=== PATIENT | male | born 1945 | race Caucasian/White ===

== ENCOUNTER 2022-06-17 13:11 | Outpatient (CLI) | payer MEDICARE, OTHER, SELFPAY | END 2022-06-17 13:12 | disposition home or self-care (01) | DX: E83.119 Hemochromatosis, unspecified (principal) | CPT/HCPCS: 36415 ==

== ENCOUNTER 2023-08-10 10:36 | Emergency (ER) | payer MEDICARE, OTHER, SELFPAY ==
[2023-08-10 10:46] VITALS: BP 147/77; PULSE 59; RESP 18; TEMP 36.7; O2SAT 93; BMI 36.5
--- NOTE | 2023-08-10 11:13 | ED_ITS ---
HPI - General Adult General Chief complaint: Chest Pain Stated complaint: Upper L side chest/shoulder pain Time Seen by Provider: 08/10/23 10:50 History of Present Illness HPI narrative: This 78-year-old male comes in reporting some left-sided neck, left shoulder, and left upper anterior chest discomfort over the past 10 days. He states that this pain is reproducible with certain movements. 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 Last week he had an echocardiogram and stress test which showed reassuring findings. There was the small progression of his coronary artery disease but the patient does not report any exercise intolerance. He does not have any nausea, vomiting, lightheadedness, shortness of breath, or diaphoresis. Related Data Home Medications Medication Instructions Recorded Confirmed aspirin 81 mg tablet,delayed 81 mg PO DAILY 08/10/23 08/10/23 release (Adult Low Dose Aspirin) carvedilol 25 mg tablet 25 mg PO BID 08/10/23 08/10/23 fluoxetine 20 mg capsule 20 mg PO BID 08/10/23 08/10/23 levothyroxine 50 mcg tablet 50 mcg PO DAILY 08/10/23 08/10/23 losartan 50 mg tablet 75 mg PO DAILY 08/10/23 08/10/23 metformin 1,000 mg tablet 1,000 mg PO BID 08/10/23 08/10/23 rosuvastatin 20 mg tablet 20 mg PO DAILY 08/10/23 08/10/23 Previous Rx's Medication Instructions Recorded cyclobenzaprine 10 mg tablet 10 mg PO TID #15 tabs 08/10/23 ketorolac 10 mg tablet 10 mg PO Q8H 5 days #15 tabs 08/10/23 Allergies Allergy/AdvReac Type Severity Reaction Status Date / Time corticotropin Allergy Unknown Verified 08/10/23 10:54 Review of Systems Status of ROS: Reports: 10 or more systems reviewed and unremarkable except as noted in History and below Narrative: Constitutional: No fevers, no weight gain or loss. Eyes: No discharge. No vision changes. HENT: No congestion, no sore throat, no ear pain. Cardiovascular: No palpitations. Respiratory: No shortness of breath, no wheezes, no cough. Gastrointestinal: No abdominal pain, no vomiting, no diarrhea. Genitourinary: No dysuria, no hematuria. Musculoskeletal: Normal range of motion. Skin: No rashes, no pruritis. Neurological: No dizziness, weakness, sensory change, speech change. Endo/Heme/Allergies: No bruising or bleeding. No polydipsia. Pysch: no suicidality, no anxiety, no insomnia. All other systems reviewed and are negative. Exam Narrative: Exam Narrative: Constitutional: Well-developed, well-nourished, no acute distress. HEENT: Normocephalic, atraumatic. Neck: Normal range of motion. Nontender. Supple. Heart: Regular. No murmurs. Normal rate. Intact distal pulses. Lungs: Clear to auscultation. No wheezes, rhonchi, or rales. Abdomen: Normal bowel sounds. Nontender. No rebound tenderness. Genitalia: Deferred. Back: No midline tenderness. Normal range of motion. Extremities: Normal range of motion. No injury. He reports pain in the left side of his neck radiating into his left shoulder and upper chest. This pain is reproducible with certain movements and relieved with rest. Skin: Intact. No rash. Warm. No erythema or pallor. Neurologic: No altered sensation. No weakness. Alert and oriented. Psychiatric: No suicidality. No anxiety or depression. No insomnia. Nursing notes and vitals signs are reviewed. Const: Vital Signs, click to edit/add: Vital Signs - 24 hr 08/10/23 10:46 Temperature 98.1 F Pulse Rate [Pulse Oximeter] 59 L Respiratory Rate 18 Blood Pressure [Le ft Upper Arm] 147/77 H Pulse Oximetry 93 Oxygen Delivery Me thod Room Air Course Vital Signs Vital signs: Initial Vital Signs Temperature 98.1 F 08/10/23 10:46 Temperature Source Temporal Artery Scan 08/10/23 10:46 Pulse Rate 59 L 08/10/23 10:46 Respiratory Rate 18 08/10/23 10:46 Blood Pressure 147/77 H 08/10/23 10:46 Blood Pressure Mean 100 08/10/23 10:46 Blood Pressure Position Supine 08/10/23 10:46 Pulse Oximetry 93 08/10/23 10:46 Oxygen Delivery Method Room Air 08/10/23 10:46 Vital Signs Temperature 98.1 F 08/10/23 10:46 Pulse Rate 59 L 08/10/23 10:46 Respiratory Rate 18 08/10/23 10:46 Blood Pressure 147/77 H 08/10/23 10:46 Pulse Oximetry 93 08/10/23 10:46 Oxygen Delivery Method Room Air 08/10/23 10:46 Temperature 98.1 F 08/10/23 10:46 Pulse Rate 59 L 08/10/23 10:46 Respiratory Rate 18 08/10/23 10:46 Blood Pressure 147/77 H 08/10/23 10:46 Pulse Oximetry 93 08/10/23 10:46 Oxygen Delivery Method Room Air 08/10/23 10:46 Medical Decision Making MDM Narrative Medical decision making narrative: This patient comes in with reproducible discomfort in his left shoulder and now in his upper chest on the left side anteriorly. This pain is minimal when remaining still and reproducible with certain movements of stretching or change in position. He does not have any nausea, vomiting, lightheadedness, shortness of breath, or diaphoresis. His EKG shows normal sinus rhythm without any specific ST abnormality. The patient did have a stress echocardiogram about a week ago which included a full panel of lab testings which were done routinely in his follow-up with his manual control auger press operator. There was no change in his plans as result of these findings. The patient does not have any report of exercise intolerance or symptoms of angina. His symptoms are likely due to musculoskeletal causes. He is okay to be discharged home. I did provide prescriptions for Toradol and Flexeril. ECG Data Interpretation: Normal sinus rhythm. Rate is 58 beats per minute. There are no ST or T-wave abnormalities. Right bundle branch block. Discharge Plan Discharge Clinical Impression: Acute chest wall pain Patient Disposition: Home, Self-Care Condition: Stable Additional Instructions: Continue current plans. Take medications as needed and directed. Follow up with MD or return if worsening. Prescriptions: New cyclobenzaprine 10 mg tablet 10 mg PO TID Qty: 15 0RF ketorolac 10 mg tablet 10 mg PO Q8H 5 Days Qty: 15 0RF No Action losartan 50 mg tablet 75 mg PO DAILY carvedilol 25 mg tablet 25 mg PO BID levothyroxine 50 mcg tablet 50 mcg PO DAILY metformin 1,000 mg tablet 1,000 mg PO BID fluoxetine 20 mg capsule 20 mg PO BID rosuvastatin 20 mg tablet 20 mg PO DAILY aspirin [Adult Low Dose Aspirin] 81 mg tablet,delayed release (DR/EC) 81 mg PO DAILY Follow Up/Referrals: Cristal Moreira DO [Primary Care Provider] - Stand Alone Forms: [facility] Info Instructions
== END 2023-08-10 11:33 | disposition home or self-care (01) ==
PROVIDERS: Emergency Provider Emergency Medicine Emergency Medical Services; PCP Family Medicine
DX: R07.89 Other chest pain (principal)
CPT/HCPCS: 93005; 99284; 99285

== ENCOUNTER 2024-04-18 12:08 | Outpatient (RCR) | payer MEDICARE, OTHER, SELFPAY ==
[2022-06-03 13:50] LABS: Basophils Absolute Auto 0.02 K/uL (0.00-0.30); Basophils Percent Auto 0.3 % (0.0-3.0); Eosinophils Absolute Auto 0.35 K/uL (0.00-0.50); Eosinophils Percent Auto 5.9 % (0.0-7.0); Hematocrit 39.6 % (37.0-53.0); Hemoglobin* 13.6 gm/dL (13.5-17.5); Immature Granulocytes Abs Auto 0.01 K/uL (0.00-0.30); Lymphocytes Absolute Auto 1.77 K/uL (0.90-2.90); Lymphocytes Percent Auto 29.7 % (20-44); Mean Corpuscular HGB Conc 34 gm/dL (32-36); Mean Corpuscular Hemoglobin 34 pg (26-34); Mean Corpuscular Volume 100 fL (80-100); Monocytes Percent Auto 8.9 % (0.0-11.0); Neutrophils Absolute Auto 3.27 K/uL (1.7-7.0); Platelet Count* 154 K/uL (140-440); RDW Coefficient of Variation % 12.5 % (11.5-15.5); Red Blood Count 3.98 m/uL (4.30-5.90); White Blood Count* 5.95 K/uL (4.50-11.00)
[2022-06-03 14:01] LABS: Slide Review Reflex No
[2022-06-03 14:33] LABS: Iron* 213 ug/dL (49-181)
[2022-06-03 14:42] LABS: Percent Iron Saturation 84 % (20-50); Total Iron Binding Capacity 253 ug/dL (261-462)
[2022-06-03 15:08] LABS: Ferritin* 36.6 ng/mL (17.9-464.0)
[2022-08-31 13:31] LABS: Basophils Absolute Auto 0.02 K/uL (0.00-0.30); Basophils Percent Auto 0.3 % (0.0-3.0); Eosinophils Absolute Auto 0.25 K/uL (0.00-0.50); Eosinophils Percent Auto 3.4 % (0.0-7.0); Hematocrit 39.1 % (37.0-53.0); Hemoglobin* 13.6 gm/dL (13.5-17.5); Immature Granulocytes Abs Auto 0.01 K/uL (0.00-0.30); Immature Granulocytes Pct Auto 0.1 %; Lymphocytes Percent Auto 18.8 % (20-44); Mean Corpuscular HGB Conc 35 gm/dL (32-36); Mean Corpuscular Hemoglobin 34 pg (26-34); Mean Corpuscular Volume 98 fL (80-100); Neutrophils Absolute Auto 5.08 K/uL (1.7-7.0); Neutrophils Percent Auto 69.4 % (42.0-72.0); Platelet Count* 144 K/uL (140-440); RDW Coefficient of Variation % 12.1 % (11.5-15.5); White Blood Count* 7.33 K/uL (4.50-11.00)
[2022-08-31 13:37] LABS: Slide Review Reflex No
[2022-08-31 13:54] LABS: Iron* 165 ug/dL (49-181)
[2022-08-31 14:03] LABS: Percent Iron Saturation 71 % (20-50); Total Iron Binding Capacity 234 ug/dL (261-462)
[2022-08-31 14:30] LABS: Ferritin* 67.1 ng/mL (17.9-464.0)
[2022-12-28 13:22] LABS: Hemoglobin* 14.3 gm/dL (13.5-17.5)
[2022-12-28 15:04] LABS: Ferritin* 46.3 ng/mL (17.9-464.0)
[2023-03-21 11:53] LABS: Basophils Absolute Auto 0.01 K/uL (0.00-0.30); Basophils Percent Auto 0.2 % (0.0-3.0); Eosinophils Percent Auto 3.7 % (0.0-7.0); Hematocrit 40.8 % (37.0-53.0); Hemoglobin* 13.8 gm/dL (13.5-17.5); Immature Granulocytes Abs Auto 0.01 K/uL (0.00-0.30); Immature Granulocytes Pct Auto 0.2 %; Lymphocytes Absolute Auto 1.39 K/uL (0.90-2.90); Lymphocytes Percent Auto 25.9 % (20-44); Mean Corpuscular HGB Conc 34 gm/dL (32-36); Mean Corpuscular Hemoglobin 34 pg (26-34); Mean Corpuscular Volume 100 fL (80-100); Monocytes Percent Auto 8.2 % (0.0-11.0); Neutrophils Absolute Auto 3.32 K/uL (1.7-7.0); Neutrophils Percent Auto 61.8 % (42.0-72.0); Platelet Count* 170 K/uL (140-440); RDW Coefficient of Variation % 12.3 % (11.5-15.5); Red Blood Count 4.09 m/uL (4.30-5.90); White Blood Count* 5.37 K/uL (4.50-11.00)
[2023-03-21 12:11] LABS: Slide Review Reflex No
[2023-03-21 12:35] LABS: Ferritin* 55.6 ng/mL (17.9-464.0)
[2023-03-22 12:52] LABS: Percent Iron Saturation 58 % (20-50); Total Iron Binding Capacity 250 ug/dL (261-462)
[2023-03-22 12:58] LABS: Iron* 144 ug/dL (49-181)
[2023-07-19 13:57] LABS: Basophils Absolute Auto 0.01 K/uL (0.00-0.30); Basophils Percent Auto 0.1 % (0.0-3.0); Eosinophils Absolute Auto 0.25 K/uL (0.00-0.50); Eosinophils Percent Auto 3.7 % (0.0-7.0); Hematocrit 41.9 % (37.0-53.0); Immature Granulocytes Abs Auto 0.01 K/uL (0.00-0.30); Immature Granulocytes Pct Auto 0.1 %; Lymphocytes Absolute Auto 1.95 K/uL (0.90-2.90); Lymphocytes Percent Auto 28.7 % (20-44); Mean Corpuscular HGB Conc 33 gm/dL (32-36); Mean Corpuscular Hemoglobin 33 pg (26-34); Mean Corpuscular Volume 100 fL (80-100); Monocytes Percent Auto 7.8 % (0.0-11.0); Neutrophils Absolute Auto 4.04 K/uL (1.7-7.0); Neutrophils Percent Auto 59.6 % (42.0-72.0); Platelet Count* 153 K/uL (140-440); RDW Coefficient of Variation % 12.2 % (11.5-15.5); Red Blood Count 4.21 m/uL (4.30-5.90); White Blood Count* 6.79 K/uL (4.50-11.00)
[2023-07-19 14:00] LABS: Slide Review Reflex No
[2023-07-19 14:30] LABS: Iron* 208 ug/dL (49-181)
[2023-07-19 14:40] LABS: Percent Iron Saturation 77 % (20-50); Total Iron Binding Capacity 270 ug/dL (261-462)
[2023-07-19 15:05] LABS: Ferritin* 31.8 ng/mL (17.9-464.0)
[2023-10-19 13:36] LABS: Basophils Absolute Auto 0.02 K/uL (0.00-0.30); Basophils Percent Auto 0.3 % (0.0-3.0); Eosinophils Absolute Auto 0.29 K/uL (0.00-0.50); Eosinophils Percent Auto 4.1 % (0.0-7.0); Hematocrit 42.2 % (37.0-53.0); Immature Granulocytes Abs Auto 0.01 K/uL (0.00-0.30); Immature Granulocytes Pct Auto 0.1 %; Lymphocytes Absolute Auto 2.09 K/uL (0.90-2.90); Lymphocytes Percent Auto 29.8 % (20-44); Mean Corpuscular HGB Conc 33 gm/dL (32-36); Mean Corpuscular Hemoglobin 33 pg (26-34); Mean Corpuscular Volume 99 fL (80-100); Monocytes Percent Auto 7.8 % (0.0-11.0); Neutrophils Absolute Auto 4.05 K/uL (1.7-7.0); Neutrophils Percent Auto 57.9 % (42.0-72.0); Platelet Count* 173 K/uL (140-440); RDW Coefficient of Variation % 12.5 % (11.5-15.5); Red Blood Count 4.28 m/uL (4.30-5.90); Slide Review Reflex No; White Blood Count* 7.01 K/uL (4.50-11.00)
[2023-10-19 13:48] LABS: Iron* 198 ug/dL (49-181)
[2023-10-19 13:57] LABS: Percent Iron Saturation 82 % (20-50); Total Iron Binding Capacity 242 ug/dL (261-462)
[2023-10-19 14:24] LABS: Ferritin* 33.5 ng/mL (17.9-464.0)
[2024-01-18 12:59] LABS: Basophils Absolute Auto 0.03 K/uL (0.00-0.30); Basophils Percent Auto 0.4 % (0.0-3.0); Eosinophils Absolute Auto 0.24 K/uL (0.00-0.50); Eosinophils Percent Auto 3.5 % (0.0-7.0); Hematocrit 41.2 % (37.0-53.0); Hemoglobin* 13.9 gm/dL (13.5-17.5); Lymphocytes Percent Auto 27.5 % (20-44); Mean Corpuscular HGB Conc 34 gm/dL (32-36); Mean Corpuscular Hemoglobin 34 pg (26-34); Mean Corpuscular Volume 101 fL (80-100); Monocytes Percent Auto 8.4 % (0.0-11.0); Neutrophils Absolute Auto 4.17 K/uL (1.7-7.0); Neutrophils Percent Auto 60.2 % (42.0-72.0); Platelet Count* 164 K/uL (140-440); RDW Coefficient of Variation % 12.8 % (11.5-15.5); White Blood Count* 6.92 K/uL (4.50-11.00)
[2024-01-18 13:02] LABS: Slide Review Reflex No
[2024-01-18 13:14] LABS: Iron* 220 ug/dL (49-181)
[2024-01-18 13:24] LABS: Percent Iron Saturation 88 % (20-50); Total Iron Binding Capacity 250 ug/dL (261-462)
[2024-01-18 13:53] LABS: Ferritin* 31.7 ng/mL (17.9-464.0)
[2024-04-18 12:35] LABS: Basophils Absolute Auto 0.02 K/uL (0.00-0.30); Basophils Percent Auto 0.3 % (0.0-3.0); Eosinophils Absolute Auto 0.28 K/uL (0.00-0.50); Eosinophils Percent Auto 4.1 % (0.0-7.0); Hematocrit 41.8 % (37.0-53.0); Hemoglobin* 14.1 gm/dL (13.5-17.5); Immature Granulocytes Abs Auto 0.01 K/uL (0.00-0.30); Immature Granulocytes Pct Auto 0.1 %; Lymphocytes Absolute Auto 2.01 K/uL (0.90-2.90); Lymphocytes Percent Auto 29.1 % (20-44); Mean Corpuscular HGB Conc 34 gm/dL (32-36); Mean Corpuscular Hemoglobin 34 pg (26-34); Mean Corpuscular Volume 100 fL (80-100); Monocytes Percent Auto 8.5 % (0.0-11.0); Neutrophils Percent Auto 57.9 % (42.0-72.0); Platelet Count* 154 K/uL (140-440); RDW Coefficient of Variation % 12.3 % (11.5-15.5); Red Blood Count 4.19 m/uL (4.30-5.90); White Blood Count* 6.91 K/uL (4.50-11.00)
[2024-04-18 12:37] LABS: Slide Review Reflex No
[2024-04-18 12:59] LABS: Iron* 176 ug/dL (49-181)
[2024-04-18 13:08] LABS: Percent Iron Saturation 72 % (20-50); Total Iron Binding Capacity 243 ug/dL (261-462)
[2024-04-18 13:35] LABS: Ferritin* 41.8 ng/mL (17.9-464.0)
== END 2024-07-04 14:49 | disposition home or self-care (01) ==
LOC: LAB 12:08
PROVIDERS: PCP Family Medicine; Visit Provider Family Medicine
DX: E83.110 Hereditary hemochromatosis (principal)
CPT/HCPCS: 36415; 82728; 83540; 83550; 85018; 85025; 99195

== ENCOUNTER 2024-11-06 13:16 | Outpatient (CLI) | payer MEDICARE, OTHER, SELFPAY | END 2024-11-06 13:17 | disposition home or self-care (01) | LOC: INJ CL 13:17 | PROVIDERS: PCP Family Medicine; Visit Provider Family Medicine | DX: M47.816 Spondylosis without myelopathy or radiculopathy, lumbar region (principal) | CPT/HCPCS: 64493; 64494; J0702; Q9966 ==

== ENCOUNTER 2025-01-22 09:29 | Outpatient (CLI) | payer MEDICARE, OTHER, SELFPAY | END 2025-01-22 09:30 | disposition home or self-care (01) | LOC: INJ CL 09:29 | PROVIDERS: PCP Family Medicine; Visit Provider Family Medicine | DX: M54.16 Radiculopathy, lumbar region (principal); M47.816 Spondylosis without myelopathy or radiculopathy, lumbar region; M51.369 Other intervertebral disc degeneration, lumbar region without mention of lumbar back pain or lower extremity pain | CPT/HCPCS: 64483; 64493; J0702; J1100; J2250; J3010; Q9966 ==

== ENCOUNTER 2025-07-26 12:00 | Emergency (ER) | payer MEDICARE, OTHER, SELFPAY ==
[2025-07-26] VITALS (24 sets, daily range): BP systolic 103–144; BP diastolic 57–87; PULSE 104–120; RESP 16–23; TEMP 36.2; O2SAT 93–96
--- OUTSIDE RECORDS SUMMARY | 2025-07-26 12:03 | XMS_ITS | Encounter Summary ---
Author Organization [facility] Address [address] [place] [id number] Care Team Providers Care Trauma Coordinator Name Role Phone Elsewhere, Pcp Primary Care Provider Unavailabl e Encounter Details Date Type Department Care Team (Late st Contact Info) Description 05/27/2025 CPAP Download Remote Patient Monitoring [facility] [address] [place] [address] [facility], Provider, Social History Tobacco Use Types Packs/Day Years Used Date Smoking Tobacco: Never Passive Smoke Exposure: Past Smokeless Tobacco: Never Passive Exposure Comments:My Father when I was a kid Alcohol Use Standard Drinks/Week Comments Not Currently 0 (1 standard drink = 0.6 oz pure alcohol) I stopped drinking great [place] red wine when 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 [facility] Utilities Answer Date Recorded In the past 12 months has [facility] [employer], gas, oil, or water [employer] threatened to shut off services in your home? No 01/30/2025 Humiliation, Afraid, Rape, and Kick questionnair e Answer Date Recorded Within the last year, have y ou been afraid of your partner or ex-partner? No 11/04/2022 Within the last year, have y ou been humiliated or emotionally abused in other ways by your partner or ex-partner? No Within the last year, have y ou been kicked, hit, slapped, or otherwise physically hurt by your partner or ex-partner? No 11/04/2022 Within the last year, have y ou been raped or forced to have any kind of sexual activity by your partner or ex-partner? No 11/04/2022 Hunger Vital Sign Answer Date Recorded Within the past 12 months, y ou worried that your food would run out before you got the money to buy more. Never true 01/31/20 25 Within the past 12 months, t he food you bought just didn't last and you didn't have money to get more. Never true 01/30/2025 PRAPARE - Transportation Answer Date Re corded In the past 12 months, has l ack of transportation kept you from medical appointments or from getting medications? No 03/2025 In the past 12 months, has l ack of transportation kept you from meetings, work, or from getting things needed for daily living? No 01/30/2025 Depression Answer Date Recor ded PHQ-9 Total Score (max 27) 2 08/19 Housing Stability Answer Date Recorded What is your living situation today? I have a [facility] place to live 01/30/2025 Education Answer Date Recorded What is the highest level of school you have completed or the highest degree you have received? Doctorate 04/01/2019 Sex and Gender Information Value Date Recorded Sex Assigned at Male 05/15/2018 11:50 AM CDT Legal Sex Male 10:33 PM DRILL OPERATOR PNEUMATIC Gender Identity Male 07/03/2020 8:32 PM CDT Sexual Orientation Straight 05/15/2018 11 :50 AM CDT documented as of this encounter Plan of Treatment Upcoming Encounters Date Type Department Care Team (Latest Contact Info) Description 08/16/2025 8:00 AM DRILL OPERATOR PNEUMATIC Comprehensive Visit Division of Gastroenterology in [place], [place] [address] [place] [address] Demond Sexton M.D. [address] [place] [address] 09/10/2025 11:00 AM DRILL OPERATOR PNEUMATIC Appointment Department of Laboratory Medicine in [address] [place], [place] [address] Nicolette Ortiz APRN, C.N.P., M.S.N. [address] [place] [phone] documented as of this encounter Visit Diagnoses Not on filedocumented in this encounter Additional Health Concerns Assessment Noted Time PHQ-9 Depression Total Score: 2 08/19/20 21 9:59 PM DRILL OPERATOR PNEUMATIC documented as of this encounter Care Teams Trauma Coordinator Relationship Specialty Start Date End Date Elsewhere, Pcp PCP - General Family Medicine 03/24/21 documented as of this encounter
--- OUTSIDE RECORDS SUMMARY | 2025-07-26 12:03 | XMS_ITS ---
Author Organization [facility] Address [address] [place] [address] Care Team Providers Care Brush Hand Name Role Phone Elsewhere, Pcp Primary Care Provider Unavailabl e Active Problems * This document contains information received from the source organization and may not represent a complete record from that organization. 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 Past Treatment and Therapy Plans Hem/Onc Therapy Plan 1 Plan Name Start Date Discontinue Date Treatment Medications Discontinue Reason Plan Provider Leuprolide Acetate Every 16 Weeks 07/28/2020 05/05/2022 No medications scheduled. Therapy Complete Samantha Marie APRN, C.N.P. Past Radiation Episodes * IMRT: PelvisOverview* First Treatment Date Last Treatment Date Treatment Site Technique Goal Episode Provider 09/30/2020 11/18/2020 Pelvis IMRT Curative * Linked Problems Primary Malignant Neoplasm O f ProstateRising Prostate Specific Antigen Following Treatment For Malignant Cancer Of Prostate Treatment Courses* Course 1x Pelvis 09/30/2020 - 11/18/2020 Treatment Period Fraction Dose Fractions Total Dose Plans Planned F1_ProstatBed 09/30/2020 - 11/18/2020 200 cGy 36 / 36 7,200 cGy Reference Points Delivered [id number] 09/30/2020 - 11/18/2020 7,200 cGy
--- OUTSIDE RECORDS SUMMARY | 2025-07-26 12:03 | XMS_ITS | Clinical Summary ---
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 1 Bottle 0 12/21/19 13 Active aspirin 81 mg tablet Take 1 tablet by mouth once daily with a meal. 0 12/26/19 13 Active glucosamine-ch ondroit-vit c-mn cap Take 2 capsules by mouth one time. 0 12/26/19 13 Active cholecalcifero l (VITAMIN D) 1,000 unit capsule Take 1 capsule by mouth once daily. 0 12/26/19 13 Active vitamin e 400 unit capsule Take 1 capsule by mouth once daily. 0 12/26/19 13 Active MISCELLANEOUS MEDICAL SUPPLY (GRADUATED COMPRESSION STOCKINGS)Marni cations:Pedal edema,S/P laminectomy,Ne uropathy, lumbosacral (radicular) Juzzo #3511; knee high; size 3; 20-30 mm Hg;Beige; open toe; no silicone; also dispense Gator system for ease of application. 1 Packet 0 12/28/19 13 Active budesonide (PULMICORT RESPULES) 0.5 mg/2 mL neb suspension Mix 1 ampule with 8 once of saline into sinus irrigation bottle and irrigate each nostril twice daily. 05/18/20 18 Active Nojrc-4-VYC-EP A-Fish Oil 1,200 (144-216) mg capsule Take by mouth. 0 04/09/20 19 Active Zinc Gluconate 10 mg lozg once daily. Active nystatin-triam cinolone (MYTREX) ointment Apply under the foreskin twice daily for 7-10 days/month as indicated. 04/13/20 22 Active losartan (COZAAR) 50 mg tabletIndicati ons:HTN (hypertension) Take 1.5 Tablets (75 mg) by mouth once daily. 0 01/04/20 23 Active cyclobenzaprin e (FLEXERIL) 10 mg tabletIndicati ons:Neck pain on right side,Left-side d chest wall pain,Acute pain of left shoulder Take 1 tab up to three times daily, but primarily want to use only at night once a day. This may make you drowsy. 60 Tablet 1 08/15/20 23 Active isosorbide mononitrate (IMDUR) 30 mg extended release tablet 24 Hour Take 30 mg by mouth once daily. 08/12/20 23 Active fluticasone propionate (FLOVENT) 110 mcg/Actuation inhalerIndicat ions:Chronic cough INHALE 2 PUFFS BY MOUTH TWO TIMES A DAY. RINSE MOUTH WITH WATER AFTER USE TO REDUCE AFTERTASTE AND INCIDENCE OF CANDIDIASIS 12 g 5 08/27/20 24 Active metFORMIN 1,000 mg tabletIndicati ons:Controlled type 2 diabetes mellitus without complication, without long-term current use of insulin (HC) Take 1 Tablet (1,000 mg) by mouth two times daily with meals. 180 Tablet 3 12/15/19 25 Active rosuvastatin 20 mg tabletIndicati ons:Coronary artery disease involving jamul coronary artery of jamul heart without angina pectoris Take 1 Tablet (20 mg) by mouth once daily with evening meal. 90 Tablet 3 12/15/19 25 Active levothyroxine 50 mcg tabletIndicati ons:Hypothyroi dism (acquired) Take 1 Tablet (50 mcg) by mouth once daily. 100 Tablet 3 12/15/19 25 Active cyanocobalamin (vitamin B-12) 1,000 mcg/mL dropIndication s:Vitamin B12 deficiency Take 1 Drop by mouth WITH BREAKFAST. 60 mL 3 12/15/19 25 Active omeprazole 20 mg tabletIndicati ons:Gastroesop hageal reflux disease, unspecified whether esophagitis present Take 2 Tablets (40 mg) by mouth once daily before a meal. 30 Tablet 2 12/15/19 25 Active traMADoL 50 mg tabletIndicati ons:Lumbar facet arthropathy Take 1 Tablet (50 mg) by mouth 3 times daily if needed for Pain. 12 Tablet 1 12/21/19 25 Active pen tirzepatide (MOUNJARO) 10 mg/0.5 mL penIndications :Controlled type 2 diabetes mellitus without complication, without long-term current use of insulin (HC) Inject 10 mg subcutaneous once weekly. 6 mL 3 05/07/20 25 Active nitroglycerin 0.4 mg sublingual tabletIndicati ons:Coronary artery disease involving jamul coronary artery of jamul heart without angina pectoris Place 1 Tablet (0.4 mg) under the tongue every 5 minutes if needed for Chest Pain. Up to 3 tablets in 15 minutes. If patient requesting greater than 25 doses in 30 days, to provider to authorize 25 Tablet 1 07/09/20 25 Active carvediloL (COREG) 25 mg tabletIndicati ons:Coronary artery disease involving jamul coronary artery of jamul heart without angina pectoris TAKE 1 TABLET (25 MG) BY MOUTH TWO TIMES DAILY WITH MEALS. 180 Tablet 07/09/20 25 Active FLUoxetine (PROZAC) 20 mg capsuleIndicat ions:Major depressive disorder, single episode, in full remission TAKE 1 CAPSULE (20 MG) BY MOUTH TWO TIMES DAILY. 180 Capsule 07/09/20 25 Active FLUoxetine (PROZAC) 20 mg capsuleIndicat ions:Major depressive disorder, single episode, in full remission Take 1 Capsule (20 mg) by mouth two times daily. 180 Capsule 3 06/12/20 24 025 Discontinued carvediloL 25 mg tabletIndicati ons:Coronary artery disease involving jamul coronary artery of jamul heart without angina pectoris Take 1 Tablet (25 mg) by mouth two times daily with meals. 180 Tablet 3 12/15/19 25 025 Discontinued nitroglycerin 0.4 mg sublingual tabletIndicati ons:Coronary artery disease involving jamul coronary artery of jamul heart without angina pectoris Place 1 Tablet (0.4 mg) under the tongue every 5 minutes if needed for Chest Pain. Up to 3 tablets in 15 minutes. 25 Tablet 12/15/19 25 025 Discontinued Active Problems Problem Noted Date Diagnosed Date Skin cancer 04/02/2025 Overview (05/17/2025): 03/25/2025: left neck iSCC, excised by Naty Ramírez MD on 05/09/2025 Congestive heart failure, un specified HF chronicity, unspecified heart failure type 12/14/2024 HTN (hypertension) 10/28/2022 Phimosis 10/28/2022 Nasal polyps 10/28/2022 Controlled type 2 diabetes m ellitus without complication, without long-term current use of insulin 10/28/2022 Disease of spinal cord 02/15/2022 Hereditary hemochromatosis 02/15/2022 Coronary artery disease invo lving jamul heart without angina pectoris 12/01/2016 Obesity, Class II, BMI 35-39.9 12/01/2016 Neuropathy, lumbosacral (radicular) 12/25/2012 CAD (coronary artery disease) 12/25/2012 Unspecified hypothyroidism 12/25/2012 Pedal edema 12/25/2012 Overview (12/25/2012): Developed with Neuropathy/Laminectomy 10/2012. Unspecified constipation 12/25/2012 S/P laminectomy 12/25/2012 Hx of colonic polyps 08/11/2011 Overview (08/11/2011): Reported history of Colon Polyps per patient Unspecified adjustment reaction Prostate cancer Overview (01/14/2021): Tere 3+3=6, trated at [facility] S/P radiation therapy Overview (01/14/2021): for treament of prostate cancer Resolved Problems Problem Noted Date Diagnosed Date Resolved Date Type 2 diabetes mellitus wit h other specified complication, without long-term current use of insulin 12/30/2023 12/14/2024 Type 2 diabetes mellitus wit hout complication, without long-term current use of insulin 08/17/2002 12/14/2024 Overview (12/25/2012): Diet controlled at this time Encounters Date Type Department Care Team Description 07/08/2025 Refill [facility] [address] [place], [place] [address] Cristal Moreira, DO Refill Request (Nitroglycerin, Carvedilol, Fluoxetine) 05/22/2025 11:30 AM CDT Nurse/Clinic Staff Only [facility] [address] [place] [address] Suture Removal 05/22/2025 Travel 05/20/2025 Travel 05/14/[address] [facility] [address] [place] [address] Naty Ramírez MD Results 05/09/2025 10:30 AM CDT Procedure Only [facility] [address] [place] [address] Naty Ramírez MD Procedure 05/09/2025 Travel 05/05/2025 Travel from Last 3 Months Immunizations Immunization Administration Dates Next Due COVID-19 VACCINE SPIKEVAX (M ODERNA 50MCG/0.5ML) 12YO+ PFS 12/14/2024 COVID-19 vaccine (Pfizer-Bio NTech 30mcg/0.3mL) PF, MDV 11/18/2020 Hepatitis A (Adult) 10/19/2001,01/26/2001 Hepatitis B (Adult) 10/19/2001,05/10/2001,2000 Inactivated Polio Vaccine 01/26/2001 Influenza Virus, Unspecified 06/26/2015, 07/17/2014,07/03/2013,09/2011,06/26/2011,06/22/2010,06/15/20 09,07/10/2007,09/26/2005 Influenza, High-dose Inactivated 024,07/06/2018,07/06/2017,09/2015,06/26/2015,07/17/2014,07/17/20 14,06/10/2014,06/10/2014 Influenza, High-dose Quadriv alent Inactivated 08/11/2023,07/01/2022,06/07/2020 Influenza, IIV3 (Age >=3 years) 07/03/20 13,07/27/2012,06/26/2012,11/2010,06/22/2010,06/15/2009,07/18/20 07,06/30/2006,09/26/2005,07/09/2004,1 ,08/03/2000,07/13/1999,07/12 Influenza, Inactivated AIIV4 (Age 65+ Years) Preserv Free 06/16/2021 Influenza, Inactivated IIV3 (Age 65+ Years) Preserv Free 07/04/2019 Influenza, Whole Virus 06/30/2015 Lithuanian Encephalitis 08/28/2012, 008,01/19/2008,12/2502/11/2008 [place] Encephalitis Sc 08/28/2012 Pneumococcal Poly,23-Valent (Pneumovax) 08/16/2012,07/18/2007,07/10/2007 Pneumococcal conj 13-Valent (Prevnar 13) 11/11/2015 RSV, Recombinant ADJ Reconst ituted (Arexvy 120MCG/0.5mL) 08/30/2023 Td (Age >=7 Years) 06/26/2006,07/12/1995 Td, Preservative Free (age > = 7 Years) 07/28/2006,06/26/2006,11/24/2004 Tdap 07/07/2022,08/16/2012 Tuberculin (PPD) 01/12/2008,01/12/2008 Typhoid (injectable) 07/13/2018,01/05/2008,01/26 Zoster (Shingrix-RZV, recombinant) 10/05/2019, Zoster (Zostavax-ZVL, live) 07/18/2007, 7 Family History Medical History Relation Name Comments Allergies Daughter Asthma Father Joseph Hooks Heart Disease Father Joseph Hooks [place] at 72yo Alcohol/Drug Maternal Aunt Alcohol/Drug Maternal Uncle Allergies Mother Goldie Hooks Arthritis Mother Goldie Hooks Asthma Mother Goldie Hooks Cancer Mother Goldie Hooks Uterine Diabetes Mother Goldie Hooks Hypertension Mother Goldie Hooks Other Mother Goldie Hooks PAD Procedure w complications; ended up w Colostomy Alcohol/Drug Paternal Aunt Alcohol/Drug Paternal Uncle Arthritis Sister 1 Radha Relation Name Status Comments Daughter Father Joseph Hooks Maternal Aunt Maternal Uncle Mother Goldie Hooks Paternal Aunt Paternal Uncle Sister 1 Radha Alive Sister 2 Bambi Alive Social History Tobacco Use Types Packs/Day Years Used Date Smoking Tobacco: Never Smokeless Tobacco: Never Tobacco Cessation:Counseling Given: Yes Alcohol Use Standard Drinks/Week Comments No 0 (1 standard drink = 0.6 oz pur e alcohol) PHQ-2 Answer Date Recorded PHQ-2 TOTAL SCORE 1 12/14/2024 Social Connections Answer Date Recorded Do you often feel lonely or isolated from those around you? 0 03/17/2025 Financial Resource Strain Answer Date R ecorded Difficulty of Paying Living Expenses 3 03/17/2025 Difficulty of Paying Living Expenses Not on file 03/17/2025 Food Insecurity Answer Date Recorded Do you worry your food will run out before you are able to buy more? 1 03/17/2025 Transportation Needs Answer Date Record ed Does lack of transportation keep you from medica l appointments? 1 03/17/2025 Does lack of transportation keep you from work, meetings or getting things that you need? 1 03/17/2025 Housing Stability Answer Date Recorded What is your housing situation today? 1 03/17/2025 Utilities Answer Date Recorded Do you have trouble paying f or utilities (for example, heat, electricity, water, phone)? 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 Not on file Not on file Obstetrics History Last Filed Vital Signs Vital Sign Reading Time Taken Comments Blood Pressure 118/62 05/09/2025 10:22 AM CDT Pulse 88 03/25/2025 11:47 AM CDT Temperature 36.7 C (98.1 F) 03/25/2025 11:47 AM CDT Respiratory Rate 16 08/16/2023 2:50 PM SHOTBLAST OPERATOR Oxygen Saturation 96% 03/25/2025 11:47 AM CDT Inhaled Oxygen Concentration - - Weight 98.7 kg (217 lb 9.6 oz) 03/25/2025 11:47 AM CDT Height 171.6 cm (5' 7.56) 12/14/2024 9:04 AM CD T Body Mass Index 33.52 12/14/2024 9:04 AM CDT Plan of Treatment Upcoming Encounters Date Type Department Care Team (Late st Contact Info) Description 08/05/2025 11:25 AM SHOTBLAST OPERATOR Office Visit [facility] [address] [place] [address] Cristal Moreira, DO [address] [place] [address] 10/03/2025 2:00 PM SHOTBLAST OPERATOR Office Visit [facility] [address] [facility] [address] [place], [place] [id number] Naty Ramírez MD [address] [facility] [address] [place], [place] [id number] Health Maintenance Due Date Last Done Comments Hepatitis C screening for ag e 18-79 1963 Influenza Vaccine (#1) 2025 , 06/16/2021, 07/04/2019, Additional history exists BMI (ht and wt on same day) for age 18+ 12/14/2025 12/14/2024, 04/19/2023, 01/24/2023, Additional history exists Depression screening for age 12+ 12/14/2025 12/14/2024, 10/25/2024, 10/24/2024, Additional history exists Medicare Wellness for age 65+ 12/15/2025 12/14/2024, 10/27/2022 Tetanus booster 07/07/2032 07/07/2022, 07/28, 07/28/2006, Additional history exists Hepatitis B series for 19+ Completed 10/19, 05/10/2001, 02/28/2001 Pneumococcal series for age 50+ Completed 11/11/2015, 08/16/2012, 07/18/2007, Additional history exists Zoster (shingles) series for age 50+ Completed 10/05/2019, 06/28/2019, 07/18/2007, Additional history exists RSV vaccine for adults or Completed 08/30/2023 Medical Devices Implanted Type Area Juke Box Servicer Device Identifier Shelf Expiration Date Model / Serial / Lot Strip Silcn 0.75x3.5x125 [id number] - [id number] Implanted:Qty: 1 on 11/01/2017 by Poli Obrien MD at [facility] Right: Eye [employer] 02/24/2024 [id number] / / [id number] Sleeve Silcn 1.00i.D.X2.1mm Od Sty70 [id number] [employer] - [id number] Implanted:Qty: 1 on 11/01/2017 by Poli Obrien MD at [facility] Right: Eye [employer] 08/25/2023 [id number]# / / [id number] Procedures Procedure Name Priority Date/Time Associated Diagnosis Comments PATH TISSUE EXAM Routine 05/09/2025 10:1 9 AM CDT 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 Biopsy site change consistent with prior procedure 2. Negative for residual squamous cell carcinoma in situ 05/14/2025 10:21 AM CDT [facility] at 1021 CDT Clinical Information Re-excision SCCis, tagged at 12 case # [id number] 05/14/2025 10:21 AM CDT [facility] Gross Description A) Received in formalin, labeled with the patient's name and left neck, is a 3.1 x 1.3 x 0.4 cm oriented skin ellipse, with a suture at 12:00. There is a 0.6 x 0.5 cm area of flattened hyperemia that is 0.4 cm from the nearest peripheral skin edge (9:00 margin). The specimen is inked according to the following quintero: 12 o'clock to 3 o'clock: Blue 3 o'clock to 6 o'clock: Green 6 o'clock to 9 o'clock: Red 9 o'clock to 12 o'clock: Yellow The specimen is serially sectioned and entirely submitted: 1. Tips 2-3. Remainder PAD 05/10/2025 05/14/2025 10:21 AM T [facility] Microscopic Description The final diagnosis is based on microscopic examination of appropriate sections of all specimens. Sections of skin reveal central biopsy site change. No residual squamous cell carcinoma in situ is seen. The presence of multicolored ink is confirmed on tissue sections. 05/14/2025 10:21 AM T [facility] Additional Information Interpreted at [facility] - [address], [place] [address] 05/14/2025 10:21 AM T [facility] Other SPECIMEN FROM SKIN / Unknown Non-Blood / Unknown 05/09/2025 10:19 AM CDT 05/09/2025 4:39 PM CDT Naty Ramírez MD PATHOLOGY/CYTOLOGY nal Result [facility] [address] [place] [address], from Last 3 Months Insurance MEDICARE PB ONLY MEDICARE PART B HB ONLY MEDICARE PART A HB ONLY [facility] Care Teams Ladies Underwear Operator Relationship Specialty Start Date End Date Cristal Moreira DO [address] [place] [address] PCP - General Family Practice 11/29/22
--- OUTSIDE RECORDS SUMMARY | 2025-07-26 12:03 | XMS_ITS | Encounter Summary ---
Author Organization [facility] Address [address] [place] [address] Care Team Providers Care [employer] Distributor Name Role Phone Elsewhere, Pcp Primary Care Provider Unavailabl e Reason for Referral * Outpatient (Routine) - Authorized Specialty Diagnoses / Procedures Referred By Contact Referred To Contact Gastroenterology and Hepatology Diagnoses Hemochromatosis Hereditary Demond Sexton M.D. [address] [place] [address] Phone: tel: fax: [facility] Referral ID Status Reason Start Date Expiration Date V isits Requested Visits Authorized [id number] Authorized 05/20/2025 11/19/2026 1 1 Scheduling Instructions Coming onsite 06/06 Encounter Details Date Type Department Care Team (Latest Contact Info) Description 05/15/2025 Results Follow-Up Division of Gastroenterology in [place], [place] [address] [place] [phone] Tori López R.N. [address] [place] [phone] Ferritin, Iron and Total Iron-Binding Capacity, CBC with Differential, Blood Social History Tobacco Use Types Packs/Day Years Used Date Smoking Tobacco: Never Passive Smoke Exposure: Past Smokeless Tobacco: Never Passive Exposure Comments:My Father when I was a kid Alcohol Use Standard Drinks/Week Comments Not Currently 0 (1 standard drink = 0.6 oz pure alcohol) I stopped drinking great [place] Island[place] red wine when 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 [facility] Utilities Answer Date Recorded In the past 12 months has th e [employer], gas, oil, or water company threatened to shut off services in your [...] your living situation today? I have a [facility] place to live 01/30/2025 Education Answer Date Recorded What is the highest level of school you have completed or the highest degree you have received? Doctorate 04/01/2019 Sex and Gender Information Value Date Recorded Sex Assigned at Male 05/15/2018 11:50 AM CDT Legal Sex Male 10:33 PM HAMMER REPAIRER Gender Identity Male 07/03/2020 8:32 PM CDT Sexual Orientation Straight 05/15/2018 11 :50 AM CDT documented as of this encounter Plan of Treatment Upcoming Encounters Date Type Department Care Team (Latest Contact Info) Description 08/16/2025 8:00 AM HAMMER REPAIRER Comprehensive Visit Division of Gastroenterology in [place], [place] [address] [place] [address] Demond Sexton M.D. [address] [place] [phone] 09/10/2025 11:00 AM HAMMER REPAIRER Appointment Department of Laboratory Medicine in [address] [facility] [place] [address] Nicolette Ortiz APRN, C.N.P., M.S.N. [address] [place] [phone] Scheduled Referrals Name Type Priority Associated Diagnoses Order Schedule Gastroenterology and Hepatology - Hepatology consult (clinic) Outpatient Referral Routine Hemochromatosis Hereditary Expected: 05/20/2025, Expires: 08/20/2026 documented as of this encounter Visit Diagnoses Diagnosis Hemochromatosis Hereditary- Primary documented in this encounter Additional Health Concerns Assessment Noted Time PHQ-9 Depression Total Score: 2 08/19/20 21 9:59 PM HAMMER REPAIRER documented as of this encounter Care Teams [employer] Dist[employer] Relationship Specialty Start Date End Date Elsewhere, Pcp PCP - General Family Medicine 03/24/21 documented as of this encounter
--- OUTSIDE RECORDS SUMMARY | 2025-07-26 12:03 | XMS_ITS | Clinical Summary ---
Author Organization [facility] Address [address] [place] [address] Care Team Providers Care Enrollment Manager Name Role Phone Elsewhere, Pcp Primary Care Provider Unavailabl e Source Comments Patient records contain information from all sites at [facility]. For routine questions regarding patient records, call [phone] during business hours, M-F 8:00 AM - 5:00 PM Central Time. Record requests for emergency care only can be directed to [phone] at any time.[facility] Allergies Active Allergy Reactions Criticality Noted Date Comments Vkwzqeee-Zgihamfmh-Xu Headache Medium 05/17/2018 Ear drops Pollen Extracts Other (see comments) Medium 11/10/2007 sneezing Polymyxin B Headache High 03/09/2021 Medications * This document contains information received from the source organization and may not represent a complete record from that organization. aspirin [address] tablet Take 1 tablet by mouth every morning. 2 Active diivk-2o-hol-epa -fish oil 720-1,200 mg capsule Take 1 capsule by mouth every morning. 6 Active acetaminophen (TYLENOL) 500 mg tablet Take 2 tablets (1,000 mg total) by mouth every 6 (six) hours as needed for pain (pain) for up to 7 days. Take 2 tablets up to four times daily for pain 100 tablet 0 Active zinc gluconate 10 mg lozenge Take 1 tablet by mouth daily. Active glucosam-chondro itin-vit C-Mn 521-970-39-2.5 mg tablet Take 1 tablet by mouth daily. Active cholecalciferol (VITAMIN D3) 25 mcg (1,000 Unit) capsule Take 1 capsule by mouth daily. 3 Active Flovent HFA 110 mcg/actuation inhaler INHALE 2 PUFFS 2 (TWO) TIMES A DAY. RINSE MOUTH WITH WATER AFTER USE TO REDUCE AFTERTASTE AND INCIDENCE OF CANDIDIASIS. DO NOT SWALLOW. 12 g 11 2 Active Additional Information Patient taking differently: 2 puff inhalation Daily, Reported on 02/01/2025 vitamin E 90 mg (200 Unit) capsule Take 90 mg by mouth daily. Active carvediloL (COREG) 25 mg tablet TAKE ONE TABLET (25MG) BY MOUTH TWICE A DAY WITH MEALS 180 tablet 3 2 Active levothyroxine (SYNTHROID, LEVOTHROID) 50 mcg tablet TAKE ONE TABLET BY MOUTH DAILY 90 tablet 3 2 Active FLUoxetine (PROzac) 20 mg capsule TAKE ONE CAPSULE BY MOUTH 2 TIMES A DAY 180 capsule 2 Active metFORMIN (GLUCOPHAGE) 1,000 mg tablet Take 1,000 mg by mouth 2 (two) times a day. 3 Active rosuvastatin (CRESTOR) 20 mg tablet Take 1 tablet (20 mg total) by mouth daily. 90 tablet 3 3 Active DME CPAPIndications: Apnea Sleep Obstructive DME Order 1 each 3 Active omeprazole (PriLOSEC) [address] capsule TAKE ONE CAPSULE (40MG) BY MOUTH EVERY MORNING BEFORE BREAKFAST 60 capsule 2 3 Active Additional Information Patient taking differently: 40 mg oral Daily PRN, Reported on 02/01/2025 cyanocobalamin, vitamin B-12, (Vitamin B-12) 1,000 mcg/mL drops Take 1 drop by mouth daily. Active ipratropium (Atrovent) 21 mcg (0.03 %) nasal spray Administer 2 sprays into each nostril 2 (two) times a day. 30 mL 11 5 Active losartan (Cozaar) 50 mg tablet TAKE ONE AND ONE-HALF TABLETS (75MG) BY MOUTH EVERY DAY 135 tablet 3 5 Active nitroglycerin (Nitrostat) 0.[address] 0.4 mg under the tongue every 5 (five) minutes as needed for chest pain (Up to 3 tablets in 15 minutes.). 5 Active Mounjaro 5 mg/0.5 mL pen injector injection Inject 5 mg under the skin every 7 (seven) days. 5 Active isosorbide mononitrate (Imdur) 30 mg 24 hr tablet TAKE 1 TABLET (30 MG) BY MOUTH DAILY. 90 tablet 3 5 Active nystatin-triamci nolone (Mycolog II) 100,000 Unit/g-0.1 % ointment APPLY UNDER THE FORESKIN TWICE DAILY FOR 7-10 DAYS/MONTH INDICATED. 30 g 2 03/11/2025 4:10 PM CDT 5 Active budesonide (Pulmicort) 0.5 mg/2 mL nebulizer solution MIX 1 AMPULE WITH 8OZ OF SALINE INTO SINUS IRRIGATION BOTTLE AND IRRIGATE EACH NOSTRIL TWICE A DAY 120 mL 3 5 Active budesonide (Pulmicort) 0.5 mg/2 mL nebulizer solution Mix 1 ampule in sinus irrigation bottle and irrigate TWIce daily. 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 Date Type Department Care Team Description 06/27/2025 CPAP Download Remote Patient Monitoring [facility] [address] [place] [address] [facility] 06/06/2025 4:50 PM CDT Ancillary Procedure Department of Otorhinolaryngology 06/06/2025 9:30 AM CDT Office Visit Department of Otorhinolaryngology in [place], [place] [address] [place] [place] [phone] Na Cee M.D. Polyp Nasal Cavity (Primary Dx) 05/27/2025 CPAP Download Remote Patient Monitoring [facility] [address] [place] [address] [facility] 05/21/2025 Orders Only Department of Otorhinolaryngology in [place], [place] [address] [place] [phone] Shanae Longoria, L.P.N. 05/21/2025 Refill Department of Otorhinolaryngology in [place], [place] [address] [place] [place] [phone] Na Cee M.D. Med Refill 05/15/2025 Results Follow-Up Division of Gastroenterology in [place], [place] [address] [place] [place] [phone] Tori López R.N. Ferritin, Iron and Total Iron-Binding Capacity, CBC with Differential, Blood 05/07/2025 Orders Only Division of Gastroenterology in [place], [place] [address] [place] [place] [phone] External, Ordering Franco Hall 04/26/2025 CPAP Download Remote Patient Monitoring [facility] [address] [place] [address] [facility], MD Isabel from Last 3 Months Immunizations Immunization Administration Dates Next Due H1N1 Inj Preservative Free 09/09/2009 HZV (ZOSTAVAX) 07/10/2007 HepA Adult 10/19/2001,01/26/2001 HepB Adult 10/19/2001,05/10/2001,02/28/2001 IPV 01/26/2001 Influenza Split 07/17/2014, 3,06/26/2012,2010,06/22/2010,06/15/2009,07/10/2007,0 09/26/2005 Influenza TIV (IM) 07/04/2019 Influenza high dose QV(65 ye ars or older) (PF) 08/11/2023,07/01/2022,06/16/2021,2019 JE-MB (discontinued) 02/12/2008,01/19/2008,01/11 PCV13 11/11/2015 PPD Test 01/12/2008 PPSV23 08/16/2012,07/18/2007 RSV: respiratory syncytial v irus (AREXVY) recombinant vaccine 08/30/2023 RZV (SHINGRIX) 10/05/2019,10/05/2019,06/28/2019 SARS-COV-2 (COVID-19) - PFIZ ER (Discontinued)(12 years or older) 05/20/2021 SARS-COV-2 (COVID-19) - PFIZ ER TS(Discontinued)(12 years or older) 12/04/2021 Td Preservative Free (TENIVA C, DECAVAC) 06/26/2006 Td, (Adult) Unspecified 06/26/2006 Tdap 07/07/2022,08/16/2012 TyVi (inj) 07/13/2018,01/05/2008,01/26/2001 influenza trivalent high dos e (HD)(PF) 06/20/2024,07/04/2019,06/26/2016,2014,07/17/2014,06/10/2014 Family History Medical History Relation Name Comments Arthritis Mother Goldie Jessee Diabetes Mother Goldie Hooks Hyperlipidemia (high cholesterol) Mother Kristie Hooks Hypertension Mother Goldie Hooks Ovarian cancer Mother Goldieleana Hooks Transient ischemic attack Mother Goldie Jessee Relation Name Status Comments Mother Goldie Jessee Social History Tobacco Use Types Packs/Day Years Used Date Smoking Tobacco: Never Passive Smoke Exposure: Past Smokeless Tobacco: Never Passive Exposure Comments:My Father when I was a kid Alcohol Use Standard Drinks/Week Comments Not Currently 0 (1 standard drink = 0.6 oz pure alcohol) I stopped drinking great [place] red wine when 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 [facility] Utilities Answer Date Recorded In the past 12 months has e [employer], gas, oil, or water [employer] threatened to shut off services in your [...] your living situation today? I have a [employer] [facility] to live 01/30/2025 Education Answer Date Recorded What is the highest level of school you have completed or the highest degree you have received? Doctorate 04/01/2019 Sex and Gender Information Value Date Recorded Sex Assigned at Male 05/15/2018 11:50 AM CDT Legal Sex Male 10:33 PM MUSCULOSKELETAL PHYSICIAN Gender Identity Male 07/03/2020 8:32 PM CDT Sexual Orientation Straight 05/15/2018 11 :50 AM CDT Last Filed Vital Signs Vital Sign Reading Time Taken Comments Blood Pressure 115/70 02/05/2025 10:47 AM CDT AV G of 6 Pulse 83 02/05/2025 10:47 AM CDT AVG of 6 Temperature 35.9 C (96.6 F) 01/28/2021 8:21 AM CDT Respiratory Rate 18 09/03/2020 8:35 AM MUSCULOSKELETAL PHYSICIAN Oxygen Saturation 94% 01/28/2021 8:21 AM CDT rm air Inhaled Oxygen Concentration - - Weight 104 kg (229 lb 8 oz) 02/05/2025 10:47 AM CDT Height 171 cm (5' 7.32) 02/05/2025 10:47 AM CDT Body Mass Index 35.6 02/05/2025 10:47 AM CDT Plan of Treatment Upcoming Encounters Date Type Department Care Team (Latest Contact Info) Description 08/16/2025 8:00 AM MUSCULOSKELETAL PHYSICIAN Comprehensive Visit Division of Gastroenterology in [place], [place] [address] [place] [address] Demond Sexton M.D. [address] [place] [phone] 09/10/2025 11:00 AM MUSCULOSKELETAL PHYSICIAN Appointment Department of Laboratory Medicine in [address] [place] [phone] Nicolette Ortiz, LEX, C.N.P., M.S.N. [address] [place] [phone] Health Maintenance Due Date Last Done Comments Diabetic Eye Exam 1945 Diabetic Office Visit with Foot Exam 1945 Office Visit for Blood Pressure Check / Re-check 1945 IPV Vaccines (2 of 3 - Adult catch-up series) 02/23/2001 01/26/2001 Urine Albumin 06/26/2021 06/26/2020, 10/0 11/2018, 05/18/2018, Additional history exists Thyroid Stimulating Hormone (TSH) test for thyroid function 01/25/2024 01/24/2023, 07/16/2021, 06/30/2020, Additional history exists Depression Screening (Annual PHQ-2) 09/26/2024 COVID-19 Vaccine (2024- season) 2025 12/14/2024, 06/20/2024, 08/11/2023, Additional history exists Influenza Vaccine (#1) 2025 , 08/11/2023, 07/01/2022, Additional history exists Hemoglobin A1C 09/24/2025 03/25/2025, 11/25, 12/30/2023, Additional history exists Creatinine Level (Kidney Function Test) 02/04/2026 02/04/2025, 12/14/2024, 02/03/2024, Additional history exists Potassium Level 02/04/2026 02/04/2025, 11/25, 02/03/2024, Additional history exists Sodium Level 02/04/2026 02/04/2025, 11/25, 02/03/2024, Additional history exists DTaP,Tdap,and Td Vaccines (3 - Td or Tdap) 07/07/2032 07/07/2022, 08/16/2012, 06/26/2006, Additional history exists Hepatitis A Vaccines Completed 10/19/2001, 01/27/20 Hepatitis B Vaccines Completed 10/19/2001, 05/10/2001, 02/28/2001 Hepatitis C Screening Completed 04/09/2015 Pneumococcal vaccine (50+ years) Completed 11/11/2015, 08/16/2012, 07/18/2007 Zoster Vaccines Completed 10/05/2019, 09/26, 06/28/2019, Additional history exists Colonoscopy Discontinued 08/16/2023, 04/27, 09/15/2011 Colorectal Cancer Screening Discontinued Colorectal Cancer Surveillance Discontinued RSV vaccine - (32-36 weeks) or 50+ years Completed 08/30/2023 Fall Risk Screen (Annual) Completed 02/05/[address] Colonography Discontinued Cologuard Discontinued FIT Discontinued HPV Vaccines Aged Out No longer eligi ble based on patient's age to complete this topic Medical Devices Implanted Type Area Calibration Tester Device Identifier Shelf Expiration Date Model / Serial / Lot Xience Stent 2.5 X 12 - Fuller [id number] Implanted:Qty: 1 on 10/25/2011 Cardiac Stent Velásquez Description:Device Manufactu rer - [employer]. Device Status Text - [id number]. Paparella Ring Ear Implant Ear Description:Right ear; Louie mezaa ring Plug Ultrapro Lg - Fuller [id number] Implanted:Qty: 1 on 03/12/2015 Mesh or Patch Abdomen Ethicon Description:Device Manufactu rer - Ethicon. Device Status Text - [id number]. Mesh Proceed 70f86cr (6x8) - Fuller [id number] Implanted:Qty: 1 on 09/30/2015 Mesh or Patch Abdomen Ethicon Description:Device Manufactu rer - Ethicon. Body Location - Other. Abdominal. Device Status Text - [id number]. Procedures Procedure Name Priority Date/Time Associated Diagnosis Comments OTORHINOLARYNGOLOGY IMAGE EXAM Routine 06/06/2025 10:05 AM CDT CBC WITH DIFFERENTIAL, B Routine 025 12:58 PM CDT IRON AND TOT IRON-BINDING CAPACITY, S/P Routine 05/07/2025 12:58 PM CDT FERRITIN, S Routine 05/07/2025 12:58 PM CDT COMPREHENSIVE METABOLIC PANEL, S/P Routine 02/04/2025 10:50 AM CDT Atherosclerotic Heart Disease Of Hughes Coronary Artery Without Angina Pectoris Hyperlipidemia Hypertensive Chronic Kidney Disease With Stage 1 Through Stage 4 Chronic Kidney Disease, Or Unspecified Chronic Kidney Disease Pain Chest Atypical HEMOGLOBIN A1C, B Routine 07/16/2021 7:0 4 AM CDT General Medical Examination Adult Diabetes Mellitus Type 2 (HCC) THYROID-STIMULATING HORMONE-SENSITIVE (S-TSH) Routine 07/16/2021 7:04 AM CDT General Medical Examination Adult Hypothyroidism ALBUMIN, RANDOM, U Routine 06/26/2020 2: 54 PM CDT General Medical Examination Adult Diabetes Mellitus Type 2 (HCC) COLONOSCOPY Routine 05/17/2017 10:47 AM CDT HCV AB SCRN W/REFLEX TO HCV PCR, S Routine 04/09/2015 11:18 AM CDT from Last 3 Months or Most Recently Relevant to Health Maintenance Results * Laryngopharyngoscopy-Otorhinolaryngology Image Exam (06/06/2025 10:05 AM CDT) Narrative [facility] - 06/06/2025 10:05 AM CDT This order has been created and auto-finalized to support the import of images acquired without order. The clinical documentation to support these images can be found on the encounter that produced images. us Provider Not In System IMG NON RAD IMAGING PROCE DURES Final Result Performing Organization Address City/[facility]/ZIP Co de Phone Number [facility] * (ABNORMAL) Iron and Total Iron-Binding Capacity (05/07/2025 12:58 PM CDT) EXT Iron 184(H) 49 - 181 ug/dL [facility] EXT Total Iron Binding Capacity 229(L) 261 - 462 ug/dL [facility] 05/07/2025 12:5 8 PM CDT Narrative [facility] - 05/07/2025 4:12 PM CDT Source result document attached to Order Number [id number] ([id number]) dated 05/07/2025. External results verified in Extract by Mali Spivey on 05/07/2025 at 03:52 PM. us Ordering Provider External M.D. LAB BLOOD ADD-ON Final Result [facility] [address] [place] [address] * (ABNORMAL) CBC with Differential, Blood (05/07/2025 12:58 PM CDT) EXT Leukocytes 8.04 4.50 - 11.00 K/uL [facility] EXT RBC 4.22(L) 4.30 - 5.90 m/uL [facility] EXT Hemoglobin 14.4 13.5 - 17.5 gm/dL [facility] EXT Hematocrit 42.1 37.0 - 53.0 % [facility] EXT MCV 100 80 - 100 fL [facility] EXT Platelet Count 180 140 - 440 K/uL [facility] EXT Neutrophils 4.90 1.7 - 7.0 K/uL [facility] EXT Lymphocytes 2.13 0.90 - 2.90 K/uL [facility] EXT Monocytes 0.70 0.00 - 0.90 K/UL [facility] EXT Eosinophils 0.31 0.00 - 0.50 K/uL [facility] EXT Basophils 0.05 0.00 - 0.30 K/uL [facility] 05/07/2025 12:5 8 PM CDT Narrative [facility] - 05/07/2025 4:12 PM CDT Source result document attached to Order Number [id number] ([id number]) dated 05/07/2025. External results verified in Extract by Mali Spivey on 05/07/2025 at 03:52 PM. additional labs on scanned report us Ordering Provider External M.D. LAB BLOOD ADD-ON Final Result [facility] [address] [place] [address] * Ferritin (05/07/2025 12:58 PM CDT) EXT Ferritin, S 88.7 17.9 - 464.0 ng/mL [facility] 05/07/2025 12:5 8 PM CDT Narrative [facility] - 05/07/2025 4:12 PM CDT External results verified in Extract by Mali Spivey on 05/07/2025 at 03:52 PM. us Ordering Provider Olga Gamez LAB BLOOD ADD-ON Final Result [facility] [address] [id number], [facility] [phone] * (ABNORMAL) Comprehensive Metabolic Panel (02/04/2025 10:50 AM CDT) Potassium, P 4.6 3.6 - 5.2 mmol/L 02/04/2025 1:47 PM CDT OWAT Sodium, P 138 135 - 145 mmol/L 02/04/2025 1:47 PM CDT OWAT Chloride, P 102 98 - 107 mmol/L 02/04/2025 1:47 PM CDT OWAT Bicarbonate, P 25 22 - 29 mmol/L 02/04/2025 1:47 PM CDT OWAT Anion Gap, P 11 7 - 15 02/04/2025 1:47 PM CDT OWAT BUN (Blood Urea Nitrogen), P 26(H) 8 - 24 mg/dL 02/04/2025 1:47 PM CDT OWAT Creatinine 0.98 0.74 - 1.35 mg/dL 02/04/2025 1:47 PM CDT OWAT Estimated GFR (eGFR) 79 >=60 mL/min/BS A 02/04/2025 1:47 PM CDT OWAT Comment: Estimated GFR calculated using the 2020 CKD_EPI creatinine equation. Calcium, Total, P 9.1 8.8 - 10.2 mg/dL 02/04/2025 1:47 PM CDT OWAT Glucose, P 126 70 - 140 mg/dL 02/04/2025 1:47 PM CDT OWAT Protein, Total, P 6.6 6.3 - 7.9 g/dL 02/04/2025 1:47 PM CDT OWAT Albumin, P 3.9 3.5 - 5.0 g/dL 02/04/2025 1:47 PM CDT OWAT Aspartate Aminotransferase (AST), P 24 8 - 48 U/L 02/04/2025 1:47 PM CDT OWAT Alkaline Phosphatase, P 71 40 - 129 U/L 02/04/2025 1:47 PM CDT OWAT Alanine Aminotransferase (ALT), P 23 7 - 55 U/L 02/04/2025 1:47 PM CDT OWAT Bilirubin, Total, P 0.8 0.0 - 1.2 mg/dL 02/04/2025 1:47 PM CDT OWAT Blood (Blood, Venous) 02/04/2025 10:50 AM CDT 02/04/2025 1:10 PM CDT us Jayden Aponte, B.Ch. LAB BLOOD ADD-ON F inal Result Performing Organization Address City/[facility]/ZIP Co de Phone Number [facility] [address] [place] [address], [place] [facility] [place] [address] [place] [address] * S-TSH (Thyroid-Stimulating Hormone - Sensitive) (07/16/2021 7:04 AM CDT) TSH, Sensitive 1.4 0.3 - 4.2 mIU/L 07/16/2021 8:33 AM CDT DTL Blood (Blood, Venous) 07/16/2021 7:04 AM CDT 07/16/2021 7:56 AM CDT us Jcarlos Yarbrough M.D. LAB BLOOD ADD-ON Final Res ult Performing Organization Address City/[facility]/ZIP Co de Phone Number [facility] [address] [place] [address], [facility] [address] [place] [address] * (ABNORMAL) Hemoglobin A1c (07/16/2021 7:04 AM CDT) Hemoglobin A1c, B 6.7(H) 4.0 - 5.6 % 07/16/2021 8:33 AM CDT DT Comment: Hemoglobin A1c values greater than or equal to 6.5 percent are diagnostic for diabetes mellitus. Diagnosis should be confirmed by repeat testing. In diabetic patients, HbA1c goals should be discussed with healthcare provider. Blood (Blood, Venous) 07/16/2021 7:04 AM CDT 07/16/2021 7:37 AM CDT Jcarlos Yarbrough M.D. LAB BLOOD ADD-ON Final Res ult Performing Organization Address [facility] Co de Phone Number [facility] [address] [place], [place] [id number] [place] [address] [facility] [address] [place] [address] * Albumin, Random, Urine (06/26/2020 2:54 PM CDT) Albumin, Random, U 5.3 mg/L 2019 4:17 PM CDT DT Comment: ----ADDITIONAL INFORMATION---- This test has been modified from the music historian's instructions. Its performance characteristics were determined by [facility] in a manner consistent with CLIA requirements. This test has not been cleared or approved by the U.S. Food and Drug Administration. Creatinine 130 mg/dL 06/26/2020 3:55 PM CDT BENJY Albumin/Creatinine Ratio 4 <17 mg/g 06/26/2020 4:17 PM CDT DTL Urine (Urine, Clean Catch) 06/26/2020 2:54 PM CDT 06/26/2020 2:54 PM CDT Jcarlos Yrabrough M.D. LAB URINE ORDERABLES Final Result Performing Organization Address [facility] de Phone Number [facility] [address] [place], [place] [phone] [place] [address] [facility] [address] [place] [address] BENJY [facility] [address] [place] [address] * Colonoscopy (05/17/2017 10:47 AM CDT) Anatomical Region Laterality Modality Other 05/17/2017 10:4 7 AM CDT Historical Provider GI PROCEDURE ORDERABLES Karishma l Result * HCV AB Scrn w/Reflex to HCV PCR, S (04/09/2015 11:18 AM CDT) HCV Ab Screen, S Negative Negative [facility] Comment:Vebwlu-vb-ivlzzu rat io is <1.00. 04/09/2015 11:1 8 AM CDT 04/09/2015 11:18 AM CDT Henri Collazo LAB MICROBIOLOGY - BLOOD ORDER LUZ MARINA Final Result [facility] [address] [place] [address], [facility] from Last 3 Months or Most Recently Relevant to Health Maintenance [facility] Care Teams Enrollment Manager Relationship Specialty Start Date End Date Elsewhere, Pcp PCP - General Family Medicine 03/24/21
--- OUTSIDE RECORDS SUMMARY | 2025-07-26 12:03 | XMS_ITS | Encounter Summary ---
Author Organization [facility] Address [address] [place] [id number] Care Team Providers Care Functional Director Name Role Phone Elsewhere, Pcp Primary Care Provider Unavailabl e Encounter Details Date Type Department Care Team (Late st Contact Info) Description 06/27/2025 CPAP Download Remote Patient Monitoring [facility] [address] [place] [address] [facility], Provider, Social History Tobacco Use Types Packs/Day Years Used Date Smoking Tobacco: Never Passive Smoke Exposure: Past Smokeless Tobacco: Never Passive Exposure Comments:My Father when I was a kid Alcohol Use Standard Drinks/Week Comments Not Currently 0 (1 standard drink = 0.6 oz pure alcohol) I stopped drinking great Dutch red wine when 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 [facility] Utilities Answer Date Recorded In the past 12 months has [facility] [employer], gas, oil, or water [employer] threatened to shut off services in your [...] your living situation today? I have a [facility] place to live 01/30/2025 Education Answer Date Recorded What is the highest level of school you have completed or the highest degree you have received? Doctorate 04/01/2019 Sex and Gender Information Value Date Recorded Sex Assigned at Male 05/15/2018 11:50 AM CDT Legal Sex Male 10:33 PM [employer] Gender Identity Male 07/03/2020 8:32 PM CDT Sexual Orientation Straight 05/15/2018 11 :50 AM CDT documented as of this encounter Plan of Treatment Upcoming Encounters Date Type Department Care Team (Latest Contact Info) Description 08/16/2025 8:00 AM [employer] Comprehensive Visit Division of Gastroenterology in [place], [place] [address] [place] [address] Demond Sexton M.D. [address] [place] [address] 09/10/2025 11:00 AM [employer] Appointment Department of Laboratory Medicine in [address] [place], [place] [address] Nicolette Ortiz APRN, C.N.P., M.S.N. [address] [place] [id number] documented as of this encounter Visit Diagnoses Not on filedocumented in this encounter Additional Health Concerns Assessment Noted Time PHQ-9 Depression Total Score: 2 08/19/20 21 9:59 PM [employer] documented as of this encounter Care Teams Functional Director Relationship Specialty Start Date End Date Elsewhere, Pcp PCP - General Family Medicine 03/24/21 documented as of this encounter
--- NOTE | 2025-07-26 12:43 | ED.GENADULT ---
HPI - General Adult General Date Seen: 07/26/25 Chief complaint: Chest Pain Stated complaint: Chest pain Time Seen by Provider: 07/26/25 12:01 Source: patient Mode of arrival: ambulatory Limitations: no limitations History of Present Illness HPI narrative: Patient is a 79-year-old male presenting to the emergency department for chest pain. He states last night he started noticing some midsternal lower chest pain that occurred when he was moving around. He thought it was gastric reflux as he has had somewhat similar symptoms like this in the past a Pepto-Bismol with help at that time. States the Pepto-Bismol was not helping. Only way pain would go away if he would lay down and rest. Pain eventually went away and he went to bed. He woke up to go the bathroom and the pain came back when he got up to walk around. It again went away when he laid back down. Has noticed the same symptoms multiple more times today that occur when he moves around and goes away when he lays back down. Has not had any fevers but did have chills this morning in states he felt like he was very tremulous. States the chills and tremulousness has improved today. Has not noticed any shortness of breath. Has not noticed the pain radiating to his back at all. Denies history of blood clots. Has not noticed any lower extremity swelling. Does see [facility] every 6 months for previous stent placement from 2011. Denies dizziness. States he had some mild lightheadedness but states his not seem to abnormal compared to his baseline. No other concerns noted. Denies weakness, numbness, vision changes, headache, abdominal pain, diarrhea, constipation. Does state he tripped and fell 1 week ago and hit his right forehead but unsure if he injured anything else Related Data Home Medications ?Medication ?Instructions ?Recorded ?Confirmed aspirin 81 mg tablet,delayed 81 mg PO DAILY 08/10/23 07/26/25 release (Adult Low Dose Aspirin) carvedilol 25 mg tablet 25 mg PO BID 08/10/23 07/26/25 fluoxetine 20 mg capsule 20 mg PO BID 08/10/23 07/26/25 levothyroxine 50 mcg tablet 50 mcg PO DAILY 08/10/23 07/26/25 losartan 50 mg tablet 75 mg PO DAILY 08/10/23 07/26/25 metformin 1,000 mg tablet 1,000 mg PO BID 08/10/23 07/26/25 rosuvastatin 20 mg tablet 20 mg PO DAILY 08/10/23 07/26/25 tirzepatide 10 mg/0.5 mL 10 mg subcut 07/26/25 subcutaneous pen injector (Sebastian) Previous Rx's ?Medication ?Instructions ?Recorded cyclobenzaprine 10 mg tablet 10 mg PO TID #15 tabs 08/10/23 Allergies Allergy/AdvReac Type Severity Reaction Status Date / Time corticotropin Allergy Unknown Verified 07/26/25 12:13 Review of Systems Narrative: Pertinent systems reviewed and were negative unless stated in HPI PFSH PFS Medical History CAD (coronary artery disease) ?I25.10 - Atherosclerotic heart disease of [place] coronary artery without angina pectoris (ICD-10) Type 2 diabetes mellitus ?E11.9 - Type 2 diabetes mellitus without complications (ICD-10) Hypertension ?I10 - Essential (primary) hypertension (ICD-10) Dyslipidemia ?E78.5 - Hyperlipidemia, unspecified (ICD-10) Hypothyroidism ?E03.9 - Hypothyroidism, unspecified (ICD-10) Sleep apnea ?G47.30 - Sleep apnea, unspecified (ICD-10) Prostate cancer ?C61 - Malignant neoplasm of prostate (ICD-10) Surgical History History of phacoemulsification of cataract of right eye with intraocular lens implantation (01/17/13) ?Z98.41 - Cataract extraction status, right eye (ICD-10) ?Z96.1 - Presence of intraocular lens (ICD-10) History of pilonidal cyst ?Z87.2 - Personal history of diseases of the skin and subcutaneous tissue (ICD-10) History of laminectomy ?Z98.890 - Other specified postprocedural states (ICD-10) History of ear surgery ?Z98.890 - Other specified postprocedural states (ICD-10) History of sinus surgery ?Z98.890 - Other specified postprocedural states (ICD-10) History of lumbar laminectomy ?Z98.890 - Other specified postprocedural states (ICD-10) History of prostatectomy (1999) ?Z90.79 - Acquired absence of other genital organ(s) (ICD-10) History of lumbar fusion ?Z98.1 - Arthrodesis status (ICD-10) H/O umbilical hernia repair ?Z98.890 - Other specified postprocedural states (ICD-10) ?Z87.19 - Personal history of other diseases of the digestive system (ICD-10) History of phacoemulsification of cataract of left eye with intraocular lens implantation (12/22/16) ?Z98.42 - Cataract extraction status, left eye (ICD-10) ?Z96.1 - Presence of intraocular lens (ICD-10) Social History Smoking Status: Never smoker Do you use any of these nicotine containing products: None Second hand tobacco smoke exposure: No Exam Narrative: Exam Narrative: Const: Well-nourished, Well-developed, in no distress Eyes: PERRL, no conjunctival injection, and symmetrical lids HENT: Atraumatic external nose and ears. Moist mucous membranes. Neck: Symmetric, trachea midline, No thyromegaly. CVS: Tachycardia, No murmurs or gallops. Peripheral pulses 2+ and equal in all extremities RESP: Unlabored respiratory effort. Clear to auscultation bilaterally. GI: Nontender/Nondistended, No rebound or guarding. MSK:Extremities w/o deformity, Normal Active ROM, some mild lower started on tenderness that he states feels like residual from the previous chest pain. States palpation does not reproduce the chest pain exactly. Skin: Warm, Dry. No rashes or lesions. Neuro: Normal Muscle tone, No focal neurological deficits. Psych: Awake, Alert, & Oriented x3. Appropriate mood and affect. Const: Vital Signs, click to edit/add: Vital Signs - 24 hr 07/26/25 12:06 07/26/25 12:11 07/26/25 12:12 Temperature 97.1 F L Pulse Rate 120 H 119 H Pulse Rate [Right Pulse Oximeter] 116 H Respiratory Rate 22 Blood Pressure 142/87 H Blood Pressure [Ri ght Upper Arm] 142/87 H Pulse Oximetry 96 96 96 Oxygen Delivery Me thod Room Air 07/26/25 12:15 07/26/25 12:30 07/26/25 12:45 Temperature Pulse Rate 116 H 115 H 114 H Pulse Rate [Right Pulse Oximeter] Respiratory Rate 18 16 Blood Pressure Blood Pressure [Ri ght Upper Arm] Pulse Oximetry 96 93 93 Oxygen Delivery Me thod 07/26/25 13:00 07/26/25 13:16 07/26/25 13:20 Temperature Pulse Rate 118 H 113 H Pulse Rate [Right Pulse Oximeter] Respiratory Rate 19 18 19 Blood Pressure 131/70 Blood Pressure [Ri ght Upper Arm] Pulse Oximetry 94 94 Oxygen Delivery Me thod 07/26/25 13:21 07/26/25 13:30 07/26/25 13:32 Temperature Pulse Rate 110 H 108 H 110 H Pulse Rate [Right Pulse Oximeter] Respiratory Rate 17 18 19 Blood Pressure 103/57 L Blood Pressure [Ri ght Upper Arm] Pulse Oximetry 93 93 93 Oxygen Delivery Me thod 07/26/25 13:45 07/26/25 13:46 07/26/25 14:04 Temperature Pulse Rate 108 H 109 H 105 H Pulse Rate [Right Pulse Oximeter] Respiratory Rate 17 22 Blood Pressure 110/59 L Blood Pressure [Ri ght Upper Arm] Pulse Oximetry 93 94 93 Oxygen Delivery Me thod 07/26/25 14:05 07/26/25 14:15 07/26/25 14:19 Temperature Pulse Rate 108 H 104 H 105 H Pulse Rate [Right Pulse Oximeter] Respiratory Rate 16 19 16 Blood Pressure Blood Pressure [Ri ght Upper Arm] Pulse Oximetry 95 95 95 Oxygen Delivery Me thod 07/26/25 14:20 07/26/25 14:30 07/26/25 14:35 Temperature Pulse Rate 104 H 107 H 109 H Pulse Rate [Right Pulse Oximeter] Respiratory Rate 16 17 19 Blood Pressure Blood Pressure [Ri ght Upper Arm] Pulse Oximetry 95 95 95 Oxygen Delivery Me thod 07/26/25 14:50 07/26/25 14:51 07/26/25 15:00 Temperature Pulse Rate 109 H 109 H 109 H Pulse Rate [Right Pulse Oximeter] Respiratory Rate 23 22 23 Blood Pressure 144/73 H Blood Pressure [Ri ght Upper Arm] Pulse Oximetry 93 93 93 Oxygen Delivery Me thod Course Vital Signs Vital signs: Initial Vital Signs Temperature 97.1 F L 07/26/25 12:06 Temperature Source Temporal Artery Scan 07/26/25 12:06 Pulse Rate 116 H 07/26/25 12:06 Pulse Rhythm Regular 07/26/25 12:06 Pulse Strength 3+ Normal 07/26/25 12:06 Respiratory Rate 22 07/26/25 12:06 Blood Pressure 142/87 H 07/26/25 12:06 Blood Pressure Mean 105 07/26/25 12:06 Blood Pressure Position Sitting 07/26/25 12:06 Pulse Oximetry 96 07/26/25 12:06 Oxygen Delivery Method Room Air 07/26/25 12:06 Vital Signs Temperature 97.1 F L 07/26/25 12:06 Pulse Rate 116 H 07/26/25 12:06 Respiratory Rate 22 07/26/25 12:06 Blood Pressure 142/87 H 07/26/25 12:06 Pulse Oximetry 96 07/26/25 12:06 Oxygen Delivery Method Room Air 07/26/25 12:06 Temperature 97.1 F L 07/26/25 12:06 Pulse Rate 109 H 07/26/25 15:00 Respiratory Rate 23 07/26/25 15:00 Blood Pressure 144/73 H 07/26/25 14:51 Pulse Oximetry 93 07/26/25 15:00 Oxygen Delivery Method Room Air 07/26/25 12:06 Medications Administered Medications: Discontinued Medications Generic Name Dose Route Start Last Admin Trade Name Freq PRN Reason Stop Dose Admin Lactated Ringer's 1,000 mls @ 1,000 mls/hr 07/26/25 13:03 07/26/25 13:17 Lactated Ringers 1000 Ml IV 07/26/25 14:02 1,000 mls/hr .Q1H ONE Administration Lorazepam 0.5 mg 07/26/25 14:26 07/26/25 14:38 Lorazepam 2 Mg/Ml Inj IVP 07/26/25 14:27 0.5 mg ONCE ONE Administration Medical Decision Making MDM Narrative Medical decision making narrative: Patient is a 79-year-old male presenting for chest pain. The differential diagnosis of chest pain is broad and includes common etiologies such as musculoskeletal strain, GERD, pneumonia, etc. More serious etiologies considered include PE, coronary artery disease, pneumothorax, aortic dissection, aortic aneurysm. He is not having any ripping chest pain to his back and he is not overtly hypertensive so I have less concern for aortic dissection. I will do an EKG and troponin look for signs of coronary artery disease. Will do chest imaging to look for signs or pneumothorax or pneumonia. Will do a CT scan but will hold off to see if any contrast pending the D-dimer. Will also order viral swabs, BMP, CBC, magnesium. Since he is tachycardic will also order a lactate Patient's lab work returned showing no acute concerning abnormalities other than he does have an elevated D-dimer 1.65. Due to this CTA was ordered. Viral swabs are negative. EKG returned interpreted by myself showing no concerning abnormalities also he does have sinus tachycardia. Troponin within limits. Will repeat the troponin. Did give him 1 L fluid as possible dehydration being for his tachycardia. He does admit to being very anxious and is very anxious at baseline. Although does state his anxiety now does not see much different than his baseline level. CTA interpreted by myself and the radiologist shows multivessel atherosclerotic coronary artery calcifications and cardiomegaly but no other concerning abnormalities. There is some atelectasis. After fluid heart rate it ranges from 103-107. I will try for some Ativan to see if his tachycardia is related to his anxiety. He still state tachycardic can the same range but overall he appears well. We did walk him around to see the chest pain came back. It did not. I did speak to Dr. He listened of [facility] explain to him the situation. He recommends increasing his isosorbide to 60 mg daily extended release. He also recommends follow-up with cardiology as soon as possible. Patient is agreeable to this plan. He will be discharged. Lab Data Labs: Lab Results 07/26/25 07/26/25 07/26/25 Range/Units 12:28 12:55 13:00 WBC 8.63 (4.50-11.00) K/uL RBC 3.93 L (4.30-5.90) m/uL Hgb 13.5 (13.5-17.5) gm/dL Hct 38.8 (37.0-53.0) % MCV 99 (80-100) fL MCH 34 (26-34) pg MCHC 35 (32-36) gm/dL RDW Coeff of Daljit 12.2 (11.5-15.5) % Plt Count 146 (140-440) K/uL Neut % (Auto) 86.8 H (42.0-72.0) % Lymph % (Auto) 5.6 L (20-44) % [place] % (Auto) 6.5 (0.0-11.0) % Eos % (Auto) 0.8 (0.0-7.0) % Baso % (Auto) 0.1 (0.0-3.0) % Neut # (Auto) 7.50 H (1.7-7.0) K/uL Lymph # (Auto) 0.50 L (0.90-2.90) K/uL [place] # (Auto) 0.60 (0.00-0.90) K/UL Eos # (Auto) 0.07 (0.00-0.50) K/uL Baso # (Auto) 0.01 (0.00-0.30) K/uL Abs Immat Gran (auto) 0.02 (0.00-0.30) K/uL Imm/Tot Granulo (auto) 0.2 % D-Dimer Quant (PE/DVT) 1.65 H (0.00-0.50) ug/ml Sodium 134 L (135-149) mmol/L Potassium 4.2 (3.6-5.1) mmol/L Chloride 103 (96-114) mmol/L Carbon Dioxide 25 (20-32) mmol/L Anion Gap 6 L (7-15) mEq/L BUN 22 (7-30) mg/dL Creatinine 0.9 (0.5-1.5) mg/dL Estimated GFR 87 ml/min Glucose 123 H (60-115) mg/dL Lactate 1.5 (0.5-1.9) mmol/L Calcium 8.9 (8.4-10.6) mg/dL Magnesium 1.6 (1.5-2.6) mg/dL Troponin I < 0.01 (0.01-0.04) ng/mL SARS-CoV-2 (PCR) Negative SARS-CoV-2 (Negative) Influenza Type A (PCR) Negative PCR FLU A (Negative) Influenza Type B (PCR) Negative PCR FLU B (Negative) RSV (PCR) Negative PCR RSV (Negative) POC Troponin I 0.01 (0.01-0.04) ng/ml 07/26/25 Range/Units 14:33 WBC (4.50-11.00) K/uL RBC (4.30-5.90) m/uL Hgb (13.5-17.5) gm/dL Hct (37.0-53.0) % MCV (80-100) fL MCH (26-34) pg MCHC (32-36) gm/dL RDW Coeff of Daljit (11.5-15.5) % Plt Count (140-440) K/uL Neut % (Auto) (42.0-72.0) % Lymph % (Auto) (20-44) % [place] % (Auto) (0.0-11.0) % Eos % (Auto) (0.0-7.0) % Baso % (Auto) (0.0-3.0) % Neut # (Auto) (1.7-7.0) K/uL Lymph # (Auto) (0.90-2.90) K/uL [place] # (Auto) (0.00-0.90) K/UL Eos # (Auto) (0.00-0.50) K/uL Baso # (Auto) (0.00-0.30) K/uL Abs Immat Gran (auto) (0.00-0.30) K/uL Imm/Tot Granulo (auto) % D-Dimer Quant (PE/DVT) (0.00-0.50) ug/ml Sodium (135-149) mmol/L Potassium (3.6-5.1) mmol/L Chloride (96-114) mmol/L Carbon Dioxide (20-32) mmol/L Anion Gap (7-15) mEq/L BUN (7-30) mg/dL Creatinine (0.5-1.5) mg/dL Estimated GFR ml/min Glucose (60-115) mg/dL Lactate (0.5-1.9) mmol/L Calcium (8.4-10.6) mg/dL Magnesium (1.5-2.6) mg/dL Troponin I (0.01-0.04) ng/mL SARS-CoV-2 (PCR) (Negative) Influenza Type A (PCR) (Negative) Influenza Type B (PCR) (Negative) RSV (PCR) (Negative) POC Troponin I 0.00 L (0.01-0.04) ng/ml Imaging Data CTA chest: Attestation: I have reviewed the pertinent imaging results. Radiologist's impression: 1. No evidence of pulmonary embolism. 2. Incidental findings described above including moderate to severe multivessel atherosclerotic coronary artery calcification and cardiomegaly. Please note that all CT scans at this facility use dose modulation, iterative reconstruction, and/or weight-based dosing when appropriate to reduce radiation dose to as low as reasonably achievable. Dictated by Demond Mohan MD @ 07/26/2025 2:15:54 PM ECG Data Attestation: I personally reviewed and interpreted this ECG as follows: Prior ECG tracings: available for review Interpretation: Sinus tachycardia with a rate of 114 beats per minute, normal intervals, normal axis, right bundle-branch block, no ST or T-wave abnormalities. Appears similar previous EKG on file other than the tachycardia Discharge Plan Discharge Clinical Impression: Stable angina Patient Disposition: Home, Self-Care Condition: Stable Instructions: Angina (DC) Additional Instructions: Your to currently taking isosorbide mononitrate (IMDUR) 30 mg once daily. Cardiology wants you start taking 60 mg, so 2 pills, every day. They also want you to have very close follow-up with them. If you do not hear back from [facility] by Tuesday I recommend calling them to set up an appointment. Also if this chest pain comes back please take a nitroglycerin and see if it helps with the chest pain as that will help benefit and diagnostics. They also want you to do a journal never time he developed chest pain say what what you were doing and how long the chest pain lasted. Again make sure when the chest pain comes back you try taking a nitroglycerin. Prescriptions: No Action losartan 50 mg tablet 75 mg PO DAILY carvedilol 25 mg tablet 25 mg PO BID levothyroxine 50 mcg tablet 50 mcg PO DAILY metformin 1,000 mg tablet 1,000 mg PO BID fluoxetine 20 mg capsule 20 mg PO BID rosuvastatin 20 mg tablet 20 mg PO DAILY aspirin [Adult Low Dose Aspirin] 81 mg tablet,delayed release (DR/EC) 81 mg PO DAILY cyclobenzaprine 10 mg tablet 10 mg PO TID Qty: 15 0RF Mounjaro 10 mg/0.5 mL pen injector 10 mg subcut Follow Up/Referrals: Cristal Moreira DO [Primary Care Provider, Family Practice] Stand Alone Forms: [facility] [employer] Info Instructions
[2025-07-26 13:06] LABS: Lactate Sepsis w/Reflex* 1.5 mmol/L (0.5-1.9)
[2025-07-26 13:09] LABS: Hematocrit* 38.8 % (37.0-53.0); Hemoglobin* 13.5 gm/dL (13.5-17.5); Immature Granulocytes Abs Auto 0.02 K/uL (0.00-0.30); Immature Granulocytes Pct Auto 0.2 %; Mean Corpuscular HGB Conc 35 gm/dL (32-36); Mean Corpuscular Hemoglobin 34 pg (26-34); Mean Corpuscular Volume 99 fL (80-100); RDW Coefficient of Variation % 12.2 % (11.5-15.5); Red Blood Count* 3.93 m/uL (4.30-5.90); White Blood Count* 8.63 K/uL (4.50-11.00)
[2025-07-26] MEDS: LACTATED RINGERS 1000 ML 1,000 ML IV (13:17)
[2025-07-26 13:22] LABS: Chloride* 103 mmol/L (96-114); Sodium* 134 mmol/L (135-149)
[2025-07-26 13:23] LABS: Potassium* 4.2 mmol/L (3.6-5.1)
[2025-07-26 13:24] LABS: Lymphocytes Absolute Auto 0.50 K/uL (0.90-2.90); Slide Review Reflex No
[2025-07-26 13:25] LABS: Troponin, Point-of-Care* 0.01 ng/ml (0.01-0.04)
[2025-07-26 13:26] LABS: Anion Gap 6 mEq/L (7-15); Blood Urea Nitrogen* 22 mg/dL (7-30); Calcium* 8.9 mg/dL (8.4-10.6); Carbon Dioxide* 25 mmol/L (20-32); Creatinine* 0.9 mg/dL (0.5-1.5); Estimated Glomerular Filt Rate 87 ml/min; Glucose* 123 mg/dL (60-115)
[2025-07-26 13:30] LABS: D Dimer Quantitative* 1.65 ug/ml (0.00-0.50)
--- NOTE | 2025-07-26 13:40 | CRLHL7_ITS ---
For Patients: As a result of the Century Cures Act, medical imaging exams and procedure reports are released immediately into your electronic medical record. You may view this report before your referring provider. If you have questions, please contact your health care provider. INDICATION: Chest pain, not otherwise described. COMPARISON: None available. TECHNIQUE: CT pulmonary angiography with 95 cc of Isovue 370 intravenous contrast. Reconstructed multiplanar MIP series were done. Please note that all CT scans at this facility use dose modulation, iterative reconstruction, and/or weight-based dosing when appropriate to reduce radiation dose to as low as reasonably achievable. FINDINGS: THORAX Pulmonary Arterial Vasculature: Opacification of the pulmonary arterial tree is adequate for assessment of pulmonary embolism. No evidence of pulmonary embolism. Visualized Lower Neck: No lower cervical adenopathy. Lungs: No significant pulmonary findings. Bilateral lower lobe subsegmental atelectasis is noted incidentally. Pleura: No pleural effusion. No pneumothorax. Mediastinum: Thoracic aorta and pulmonary trunk are normal in caliber. Moderate to severe multivessel atherosclerotic coronary artery calcification. Cardiomegaly. Trachea and esophagus are normal in appearance. No mediastinal lymphadenopathy. ABDOMEN Visualized Upper Abdomen: A small locule of air in the region of the 2nd segment of the duodenal sweep/pancreatic head could be due to a periampullary duodenal diverticulum. Nonobstructing 4 mm right upper pole nephrolith (series 4; image 191). Suspected small gallstones. 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 IMPRESSION: 1. No evidence of pulmonary embolism. 2. Incidental findings described above including moderate to severe multivessel atherosclerotic coronary artery calcification and cardiomegaly. Please note that all CT scans at this facility use dose modulation, iterative reconstruction, and/or weight-based dosing when appropriate to reduce radiation dose to as low as reasonably achievable. Dictated by Demond Mohan MD @ 07/26/2025 2:15:54 PM (Electronically Signed)
[2025-07-26 13:50] LABS: PCR FLU A Negative PCR FLU A (Negative); PCR FLU B Negative PCR FLU B (Negative); PCR RSV Negative PCR RSV (Negative); SARS PCR* Negative SARS-CoV-2 (Negative)
[2025-07-26 15:09] LABS: Troponin, Point-of-Care* 0.00 ng/ml (0.01-0.04)
== END 2025-07-26 16:50 | disposition home or self-care (01) ==
PROVIDERS: Emergency Provider Student in an Organized Health Care Education/Training Program; PCP Family Medicine
DX: I20.89 Other forms of angina pectoris (principal); R00.0 Tachycardia, unspecified
CPT/HCPCS: 36415; 71275; 80048; 83605; 83735; 84484; 85025; 85379; 87631; 93005; 96374; 99284; 99285; J2060; J7120; Q9967